=== PATIENT | female | born 1930 | race Caucasian/White ===

== ENCOUNTER 2017-06-18 08:44 | Emergency (ER) | payer MEDICARE ==
[~2017-06-18] VITALS: Ht 157.5 cm; Wt 62.0 kg
[2017-06-18 08:56] VITALS: BP 192/81; PULSE 85; RESP 19; TEMP 98.5; O2SAT 95
--- NOTE | 2017-06-18 09:03 | PD ---
HPI Chief Complaint: Fall Time Seen by Provider: 08:54 Travel History International Travel<30 days: No Contact w/Intl Traveler<30days: No Traveled to known affect area: No History of Present Illness HPI 78-year-old female was brought in by EMS for weakness and left ankle pain. Patient states that she woke up this morning feeling generalized malaise and weakness. Patient states that she try get out of bed and slipped down to the floor. Patient did not hit the head. Patient denies loss of consciousness. Patient denies any headache or neck pain. Patient denies any chest pain or shortness of breath. Patient denies abdominal pain. Patient denies any back pain. 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 Patient status post CVA with left-sided weakness. Patient has history of diabetes. EMS was called this morning. Accu-Chek blood sugar at the scene was 46. Patient was given D10 on the way to the ED. patient denies abdominal pain. Patient denies any nausea vomiting diarrhea. Patient states that she had poor appetite yesterday after taking tramadol for pain. Patient states that she was seeing things after taking Haldol. Patient states that she cannot take codeine secondary to hallucination also. PFSH Past Medical History Hx Anticoagulant Therapy: Yes Blood Disorders: No Heart Rhythm Problems: Yes Cancer: No Cardiovascular Problems: Yes High Cholesterol: Yes Cerebrovascular Accident: Yes Diabetes: Yes Endocrine: Yes Genitourinary: No Hypertension: Yes Immune Disorder: No Musculoskeletal: No Neurologic: Yes Psychiatric: No Respiratory: No Thyroid Disease: Yes ?: Not Past Surgical History Abdominal Surgery: Yes (APPY) Social History Alcohol Use: No Tobacco Use: No Substance Use: No Allergies-Medications (Allergen,Severity, Reaction): Coded Allergies: doxycycline (Unverified Allergy, Intermediate, BLISTERS, 06/18/17) minocycline (Unverified Allergy, Intermediate, BLISTERS, 06/18/17) tigecycline (Unverified Allergy, Intermediate, BLISTERS, 06/18/17) captopril (Unverified Adverse Reaction, Mild, Cough, 06/18/17) Reported Meds & Prescriptions Reported Meds & Active Scripts Active Reported Coumadin (Warfarin) 2 Mg Tab 2 Mg PO FRSASU Take 1 tablet (2mg) on Tuesday,Tuesday and Tuesday Metformin (Metformin HCl) 1,000 Mg Tab 1,000 Mg PO BID Cozaar (Losartan Potassium) 50 Mg Tab 50 Mg PO DAILY Triamterene-Hydrochlorothiazide 37.5-25 Mg Cap 1 Cap PO DAILY Toviaz ER (Fesoterodine Fumarate) 4 mg Jake 4 Mg PO DAILY Amlodipine (Amlodipine Besylate) 5 Mg Tab 5 Mg PO DAILY Zantac (Ranitidine HCl) 300 Mg Tab 300 Mg PO BID Levothyroxine (Levothyroxine Sodium) 75 Mcg Tab 75 Mcg PO DAILY Tramadol (Tramadol HCl) 50 Mg Tab 50 Mg PO Q8H PRN Metoprolol Tartrate 50 Mg Tab 50 Mg PO BID Zocor (Simvastatin) 20 Mg Tab 20 Mg PO HS Review of Systems General / Constitutional: No: Fever Eyes: No: Visual changes HENT: No: Headaches Cardiovascular: No: Chest Pain or Discomfort Respiratory: No: Shortness of Breath Gastrointestinal: No: Abdominal Pain Genitourinary: No: Dysuria Musculoskeletal: Positive: Pain Skin: No Rash Neurologic: No: Weakness Psychiatric: No: Depression Endocrine: No: Polydipsia Hematologic/Lymphatic: No: Easy Bruising Physical Exam Narrative GENERAL: Well-nourished, well-developed patient. SKIN: Focused skin assessment warm/dry. HEAD: Normocephalic. EYES: No scleral icterus. No injection or drainage. NECK: Supple, trachea midline. No JVD or lymphadenopathy. CARDIOVASCULAR: Regular rate and rhythm without murmurs, gallops, or rubs. RESPIRATORY: Breath sounds equal bilaterally. No accessory muscle use. GASTROINTESTINAL: Abdomen soft, non-tender, nondistended. MUSCULOSKELETAL: No cyanosis, or edema. BACK: Nontender without obvious deformity. No CVA tenderness. Neurologic exam: Patient awake alert oriented 3. Patient has weakness on left extremity status post CVA in the past. Patient has obvious deformity of left ankle area. Data Data Last Documented VS Vital Signs Date Time Temp Pulse Resp B/P (MAP) Pulse Ox O2 Delivery O2 Flow Rate FiO2 06/18/17 14:43 84 18 148/69 (95) 98 Room Air 06/18/17 11:45 98.2 Orders Orders Complete Blood Count With Diff (06/18/17 08:54) Comprehensive Metabolic Panel (06/18/17 08:54) Prothrombin Time / Inr (Pt) (06/18/17 08:54) Act Partial Throm Time (Ptt) (06/18/17 08:54) Urinalysis - C+S If Indicated (06/18/17 08:54) Chest, Single Ap (06/18/17 08:54) Iv Access Insert/Monitor (06/18/17 08:54) Ecg Monitoring (06/18/17 08:54) Oximetry (06/18/17 08:54) Ankle, Complete ([id number]) (06/18/17 08:54) Creatine Kinase (Cpk) (06/18/17 09:58) Sodium Chlorid 0.9% 500 Ml Inj (Ns 500 M (06/18/17 10:45) Urine Culture (06/18/17 09:50) Pt Activity (06/18/17 13:08) Labs Laboratory Tests Test 06/18/17 09:15 06/18/17 09:50 White Blood Count 5.8 TH/MM3 Red Blood Count 3.32 MIL/MM3 Hemoglobin 10.0 GM/DL Hematocrit 29.9 % Mean Corpuscular Volume 90.1 FL Mean Corpuscular Hemoglobin 30.2 PG Mean Corpuscular Hemoglobin Concent 33.5 % Red Cell Distribution Width 14.3 % Platelet Count 127 TH/MM3 Mean Platelet Volume 9.7 FL Neutrophils (%) (Auto) 77.8 % Lymphocytes (%) (Auto) 8.0 % Monocytes (%) (Auto) 13.6 % Eosinophils (%) (Auto) 0.4 % Basophils (%) (Auto) 0.2 % Neutrophils # (Auto) 4.5 TH/MM3 Lymphocytes # (Auto) 0.5 TH/MM3 Monocytes # (Auto) 0.8 TH/MM3 Eosinophils # (Auto) 0.0 TH/MM3 Basophils # (Auto) 0.0 TH/MM3 CBC Comment DIFF FINAL Differential Comment Prothrombin Time 31.9 SEC Prothromb Time International Ratio 3.2 RATIO Activated Partial Thromboplast Time 51.3 SEC Blood Urea Nitrogen 34 MG/DL Creatinine 1.32 MG/DL Random Glucose 175 MG/DL Total Protein 7.0 GM/DL Albumin 3.0 GM/DL Calcium Level 9.6 MG/DL Alkaline Phosphatase 81 U/L Aspartate Amino Transf (AST/SGOT) 37 U/L Alanine Aminotransferase (ALT/SGPT) 111 U/L Total Bilirubin 0.3 MG/DL Sodium Level 130 MEQ/L Potassium Level 3.9 MEQ/L Chloride Level 96 MEQ/L Carbon Dioxide Level 21.2 MEQ/L Anion Gap 13 MEQ/L Estimat Glomerular Filtration Rate 38 ML/MIN Total Creatine Kinase 84 U/L Urine Color YELLOW Urine Turbidity HAZY Urine pH 5.0 Urine Specific [place] 1.012 Urine Protein 30 mg/dL Urine Glucose (UA) 70 mg/dL Urine Ketones NEG mg/dL Urine Occult Blood SMALL Urine Nitrite NEG Urine Bilirubin NEG Urine Urobilinogen LESS THAN 2.0 MG/DL Urine Leukocyte Esterase LARGE Urine RBC 3 /hpf Urine WBC 28 /hpf Urine Squamous Epithelial Cells 1 /hpf Urine Bacteria MANY /hpf Microscopic Urinalysis Comment CULTURE INDICATED MDM Medical Decision Making Medical Screen Exam Complete: Yes Emergency Medical Condition: Yes Interpretation(s) Last Impressions Chest X-Ray 06/18/17 0854 Signed Impressions: Service Date/Time: Sunday, June 18, 2017 09:14 - CONCLUSION: No acute disease. Timothy Chowdhury MD Ankle X-Ray 06/18/17 0854 Signed Impressions: Service Date/Time: Sunday, June 18, 2017 09:15 - CONCLUSION: Mild soft tissue swelling and decreased bone density. Atherosclerosis. Timothy Chowdhury MD CBC WBC 5.8. Hemoglobin 10.0 hematocrit 29.9. Platelets 127. 77 neutrophil. Sodium 130. Chloride 96. BUN 34. Creatinine 1.32. GFR 38. Glucose 175. ALT 111. INR 3.2. 11:07 AM. Total CK 84. Differential Diagnosis Differential diagnosis including hypoglycemia, left ankle sprain, fracture, dislocation. Narrative Course 86-year-old female with generalized weakness and left ankle pain. Status post CVA in the past. EMS was called. Accu-Chek blood sugar was 46 and is seen. Patient was given D10 on the way to the ED. patient complained of left ankle pain. Normal saline solution 500 cc IV bolus. I spoke with for health care physician contract administration manager. Advised rehab facility. Diagnosis Primary Impression: Hypoglycemia Additional Impressions: Left ankle sprain Qualified Codes: S93.402A - Sprain of unspecified ligament of left ankle, initial encounter Hyponatremia Renal insufficiency UTI (urinary tract infection) Qualified Codes: N30.00 - Acute cystitis without hematuria Patient Instructions: General Instructions Additional Instructions: Tylenol for pain. Accu-Chek blood sugar frequently daily. Follow-up with personal physician. Follow-up with orthopedist. Bactrim DS 1 tablet twice daily for 7 days. Med/Other Pt SpecificInfo: No Change to Meds Scripts Sulfamethoxazole-Trimethoprim (Bactrim DS) 800-160 Mg Tab 1 TAB PO BID for Infection, #14 TAB 0 Refills Prov: Jus Brizuela MD 06/18/17 Disposition: 03 DISCHARGE TO SNF Condition: Stable Jus Brizuela MD Jun 18, 2017 09:03
[2017-06-18 09:36] LABS: AUTOMATED NEUTROPHIL # 4.5 TH/MM3 (1.8-7.7); BASOPHIL % 0.2 % (0.0-2.0); EOSINOPHIL % 0.4 % (0.0-4.0); HEMATOCRIT 29.9 % (35.0-46.0); LYMPHOCYTE # 0.5 TH/MM3 (1.0-4.8); MEAN CELL VOLUME 90.1 FL (80.0-100.0); MEAN CORPUSCULAR HEMOGLOBIN 30.2 PG (27.0-34.0); MEAN CORPUSCULAR HGB CONC 33.5 % (32.0-36.0); MEAN PLATELET VOLUME 9.7 FL (7.0-11.0); MONO % 13.6 % (0.0-8.0); MONOCYTE # 0.8 TH/MM3 (0-0.9); NEUT % 77.8 % (16.0-70.0); PLATELET COUNT 127 TH/MM3 (150-450); RED BLOOD COUNT 3.32 MIL/MM3 (4.00-5.30); RED CELL DISTRIBUTION WIDTH 14.3 % (11.6-17.2); WHITE BLOOD COUNT 5.8 TH/MM3 (4.0-11.0)
--- NOTE | 2017-06-18 09:39 | RADRPT ---
EXAM DATE/TIME: 06/18/2017 09:15 [facility] COMPARISON: No previous studies available for comparison. INDICATIONS : Pain on anterior ankle post fall today. MEDICAL HISTORY : None. SURGICAL HISTORY : None. ENCOUNTER: Initial ACUITY: 1 day PAIN SCORE: 7/10 LOCATION: Left Ankle. FINDINGS: The bone density is diminished and there is mild soft tissue swelling suspected laterally. Vascular c alcifications are noted. Ankle mortise is approximated. A discrete fracture lucency is not seen. CONCLUSION: Mild soft tissue swelling and decreased bone density. Atherosclerosis. Timothy Chowdhury MD on June 18, 2017 at 9:36 Board Certified Radiologist. This report was verified electronically.
--- NOTE | 2017-06-18 09:40 | RADRPT ---
EXAM DATE/TIME: 06/18/2017 09:14 [facility] COMPARISON: No previous studies available for comparison. INDICATIONS : Shortness of breath and wheezing. MEDICAL HISTORY : Hypertension. SURGICAL HISTORY : None. ENCOUNTER: Initial ACUITY: 1 day PAIN SCORE: 0/10 LOCATION: Bilateral chest FINDINGS: Lungs are clear. Cardiomegaly. Aortic calcification. Degenerative changes of the spine. CONCLUSION: No acute disease. Timothy Chowdhury MD on June 18, 2017 at 9:37 Board Certified Radiologist. This report was verified electronically.
[2017-06-18 09:44] LABS: INTERNATIONAL NORMALIZED RATIO 3.2 RATIO; PROTHROMBIN TIME - PATIENT 31.9 SEC (9.8-11.6)
[2017-06-18 09:48] LABS: AST (GOT) 37 U/L (15-37); BICARBONATE 21.2 MEQ/L (21.0-32.0); BLOOD UREA NITROGEN 34 MG/DL (7-18); CALCIUM 9.6 MG/DL (8.5-10.1); CHLORIDE 96 MEQ/L (98-107); CREATININE 1.32 MG/DL (0.50-1.00); GLOMERULAR FILTRATION RATE 38 ML/MIN (>89); GLUCOSE,RANDOM 175 MG/DL (74-106); SODIUM (NA) 130 MEQ/L (136-145)
[2017-06-18 09:49] LABS: ALT (GPT) 111 U/L (10-53)
[2017-06-18 09:52] LABS: ALKALINE PHOSPHATASE 81 U/L (45-117); TOTAL BILIRUBIN ADULT 0.3 MG/DL (0.2-1.0)
[2017-06-18 10:36] LABS: BACTERIA, URINE MANY /hpf; BILIRUBIN, URINE NEG (NEG); BLOOD, URINE SMALL (NEG); GLUCOSE,URINE 70 mg/dL (NEG); KETONE, URINE NEG (NEG); NITRITE,URINE NEG (NEG); SQUAMOUS EPITHELIAL CELL URINE 1 /hpf (0-5); URINE COLOR YELLOW (YELLW/STRAW); URINE LEUKOCYTE ESTERASE LARGE (NEG)
[2017-06-18] MEDS ORDERED: SODIUM CHLORID 0.9% 500 ML INJ 500 ML IV ONE (10:45)
[2017-06-18 11:45] VITALS: BP 176/81; PULSE 75; RESP 18; TEMP 98.2; O2SAT 98
[2017-06-18] MEDS ORDERED: METF1000 PO (11:51)
[2017-06-18] MEDS ORDERED: ZOCO20TA PO (11:51)
[2017-06-18] MEDS ORDERED: METO50TA PO (11:51)
[2017-06-18] MEDS ORDERED: COZA50TA PO (11:51)
[2017-06-18] MEDS ORDERED: COUM2TAB PO (11:51)
[2017-06-18] MEDS ORDERED: TOVI4TAB PO (11:51)
[2017-06-18] MEDS ORDERED: LEVO75TA3 PO (11:51)
[2017-06-18] MEDS ORDERED: TRIA37.53 PO (11:51)
[2017-06-18] MEDS ORDERED: ZANT300T PO (11:51)
[2017-06-18] MEDS ORDERED: TRAM50TA PO (11:51)
[2017-06-18] MEDS ORDERED: AMLO5TAB2 PO (11:51)
[2017-06-18 14:43] VITALS: BP 148/69; PULSE 84; RESP 18; O2SAT 98
[2017-06-18] MEDS ORDERED: BACT800T5 PO (16:05)
[2017-06-18 16:18] VITALS: BP 164/82
== END 2017-06-18 16:20 ==
LOC: NEPC 08:44
DX: E11.649 Type 2 diabetes mellitus with hypoglycemia without coma (principal); S93.402A Sprain of unspecified ligament of left ankle, initial encounter; E87.1 Hypo-osmolality and hyponatremia; N28.9 Disorder of kidney and ureter, unspecified; N30.00 Acute cystitis without hematuria; I10 Essential (primary) hypertension; W01.0XXA Fall on same level from slipping, tripping and stumbling without subsequent striking against object, initial encounter; Z79.01 Long term (current) use of anticoagulants; Z79.84 Long term (current) use of oral hypoglycemic drugs
CPT/HCPCS: 71045; 73610; 80053; 81001; 82550; 85025; 85610; 85730; 87077; 87086; 87186; 96360; 99284; J7040